=== PATIENT | male | born 1980 | race Caucasian/White ===

== ENCOUNTER 2023-08-27 09:53 | Outpatient (OUT) | payer OTHER, SELFPAY ==
--- NOTE | 2023-08-27 10:11 | US_ITS ---
The [address] [address] Patient Name: ANI ROLDAN MRN: [id number] date: 1980 Sex: M Assigned Patient Location: [place] Current Patient Location: Accession/Order Number: [id number] Exam Date: 08/27/2023 10:15 Report Date: 08/28/2023 13:36 At the request of: SHAIKH ANTOINE Procedure: US right upper quadrant EXAM: US right upper quadrant EXAM DATE: 08/27/2023 8:15 AM MDT COMPARISON: None available. INDICATION: CHRONIC HEPATITIS C WITHOUT HEPATIC COMA. TECHNIQUE: Limited ultrasound of the right upper quadrant of abdomen was performed. Images were reviewed on a separate workstation. FINDINGS: Hepatic parenchyma is slightly echogenic to adjacent renal cortex. Liver length measures 17.9 cm. No focal intraparenchymal abnormality detected. Gallbladder is normally distended. No intraluminal echogenic abnormality seen. No gallbladder wall thickening or pericholecystic fluid noted. Gallbladder wall measures 1.8 mm. Sonographic Cyr's sign is absent. No intrahepatic or extrahepatic biliary ductal dilatation noted. CBD measures 6.4 mm. Portal vein is patent with hepatopetal flow. Pancreas is partially obscured by bowel gas; visualized parenchyma is homogeneous. Right kidney measures 11.7 x 3.8 x 5.5 cm. No hydronephrosis or nephrolithiasis noted. No free fluid noted in the right upper abdomen. US/US right upper quadrant IMPRESSION: 1. No gallstones or bile duct dilation. 2. Minimal fatty infiltration of the liver. 3. Right kidney without hydronephrosis. 4. Subvisualized pancreas. Electronically authenticated by: ERASTO MARTIN Date: 08/28/2023 13:36
--- NOTE | 2023-08-27 10:12 | XR_ITS ---
[address] [address] Patient Name: ANI ROLDAN MRN: [id number] date: 1980 Sex: M Assigned Patient Location: US Current Patient Location: US Accession/Order Number: [id number] Exam Date: 08/27/2023 10:45 Report Date: 08/29/2023 07:48 At the request of: SHAIKH ANTOINE Procedure: XR chest 2V EXAM: CHEST 2 VIEWS HISTORY: TB LUNG, LATENT Z22.7 TECHNIQUE: PA and lateral views chest. COMPARISON: None. FINDINGS: Patient is in slightly lordotic positioning. The lungs are clear. There is no focal lung consolidation, pleural effusion or pneumothorax. Pulmonary vasculature is within normal limits. The cardiomediastinal silhouette is normal. XR/XR chest 2V IMPRESSION: 1. Clear lungs without acute cardiopulmonary disease. No findings for active tuberculosis. Electronically authenticated by: MELLO ERICKSON Date: 08/29/2023 07:48
[2023-08-27 11:09] LABS: Basophils Absolute Auto 0.1 10^3/uL (0.0-0.1); Basophils Percent Auto 0.8 % (0.2-2.0); Eosinophils Absolute Auto 0.1 10^3/uL (0.0-0.7); Eosinophils Percent Auto 1.3 % (0.9-7.0); Hematocrit 45.7 % (42.0-54.0); Hemoglobin 15.4 g/dL (14.0-18.0); Immature Granulocytes Abs Auto 0.01 10^3/uL (0.00-0.03); Immature Granulocytes Pct Auto 0.2 % (0.0-0.5); Lymphocytes Absolute Auto 3.2 10^3/uL (1.2-3.8); Lymphocytes Percent Auto 49.8 % (20.5-60.0); Mean Corpuscular HGB Conc 33.7 g/dL (29.9-35.2); Mean Corpuscular Hemoglobin 29.3 pg (25.9-34.0); Mean Corpuscular Volume 86.9 fL (80.0-94.0); Monocytes Absolute Auto 0.5 10^3/uL (0.3-0.8); Monocytes Percent Auto 7.2 % (1.7-12.0); Neutrophils Absolute Auto 2.6 10^3/uL (1.4-6.5); Neutrophils Percent Auto 40.7 % (43.0-75.0); Platelet Count 165 10^3/uL (150-450); Red Blood Count 5.26 10^6/uL (4.70-6.10); Red Cell Distribution Width 12.6 % (11.0-15.0); White Blood Count 6.4 10^3/uL (4.0-11.0)
[2023-08-27 11:39] LABS: Alanine Aminotransferase 74 U/L (16-63); Albumin Globulin Ratio 0.8; Albumin Level 3.7 g/dL (3.4-5.0); Alkaline Phosphatase 79 U/L (46-116); Anion Gap 13.7; Aspartate Amino Transferase 59 U/L (15-37); BUN Creatinine Ratio 13.7; Bilirubin Total 0.3 mg/dL (0.2-1.0); Calcium 9.4 mg/dL (8.5-10.1); Chloride 102 mmol/L (98-107); Estimated GFR (African America >60 (>=60); Estimated GFR (Non-African Ame >60 (>=60); Globulin 4.4 g/dL; Glucose 111 mg/dL (74-106); Potassium 3.7 mmol/L (3.5-5.1); Sodium 137 mmol/L (136-145); Total Protein 8.1 g/dL (6.4-8.2)
[2023-08-28 08:08] LABS: HIV Ab/p24 Ag Screen Non Reactive (Non Reactive)
[2023-08-28 11:07] LABS: HBsAg Screen Negative (Negative); HCV Antibody Reactive (Non Reactive)
[2023-08-31 00:07] LABS: Hepatitis C Genotype 1a (.)
== END 2023-08-27 09:54 | disposition home or self-care (01) ==
LOC: US 09:53
PROVIDERS: PCP Internal Medicine; Visit Provider Internal Medicine
DX: B18.2 Chronic viral hepatitis C (principal); R03.0 Elevated blood-pressure reading, without diagnosis of hypertension; F19.11 Other psychoactive substance abuse, in remission; Z22.7 Latent tuberculosis
CPT/HCPCS: 36415; 71046; 76705; 80053; 85025; 86803; 87340; 87389; 87522

== ENCOUNTER 2023-09-01 13:53 | Outpatient (OUT) | payer OTHER, SELFPAY ==
[2023-09-04 00:06] LABS: Hepatitis C Genotype 1a (.)
== END 2023-09-01 13:54 | disposition home or self-care (01) ==
LOC: LAB 13:55
PROVIDERS: PCP Internal Medicine; Visit Provider Internal Medicine
DX: B18.2 Chronic viral hepatitis C (principal)
CPT/HCPCS: 36415; 87522